=== PATIENT | male | born 1995 | race Caucasian/White ===

== ENCOUNTER 2017-01-19 14:46 | Emergency (ER) | payer SELFPAY ==
[2017-01-19 16:19] LABS: HEMOGLOBIN 15.5 gm/dl (14.0-17.5); RED BLOOD COUNT 5.13 M/UL (4.20-5.50); WHITE BLOOD COUNT 8.4 K/UL (4.5-11.0)
[2017-01-19 16:40] LABS: BUN/CREATININE RATIO 14 (0-10)
== END 2017-01-19 17:25 | disposition home or self-care (01) ==
LOC: ER1 14:46
PROVIDERS: Emergency Medicine
DX: R10.31 Right lower quadrant pain (principal)
CPT/HCPCS: 36415; 80053; 81001; 85025; 96374; 96375; 99284; J2270; J2405